=== PATIENT | female | born 1970 ===

== ENCOUNTER 2016-09-12 12:17 | Emergency (ER) | payer MEDICAID ==
[2016-09-12] MEDS ORDERED: DIPHENHYDRAMINE HCL 50 MG CAPSULE ONE (13:19)
[2016-09-12] MEDS ORDERED: MECLIZINE HCL 25 MG TABLET ONE (13:20)
[2016-09-12] MEDS ORDERED: ONDANSETRON 4 MG ODT TAB ONE (13:20)
[2016-09-12] MEDS ORDERED: IBUPROFEN 800 MG TABLET ONE (13:20)
== END 2016-09-12 14:41 | disposition home or self-care (01) ==
LOC: ED 12:17
DX: I10 Essential (primary) hypertension (principal); R51 Headache; R42 Dizziness and giddiness
CPT/HCPCS: 99283 ×2; A9270 ×4

== ENCOUNTER 2016-09-21 10:30 | Emergency (ER) | payer MEDICAID ==
[2016-09-21] MEDS ORDERED: SODIUM CHLORIDE 0.9% 1,000 ML ONE (11:55)
[2016-09-21] MEDS ORDERED: DIAZEPAM 5 MG/ML SYRINGE 2 ML ONE (11:56)
[2016-09-21 12:03] LABS: ABSOLUTE NEUTROPHIL COUNT 7.1 K/mm3 (1.8-7.7); BASO % 0.4 % (0.2-1.0); EOS % 0.2 % (0.9-2.9); HEMATOCRIT 37.2 % (37.0-47.0); HEMOGLOBIN 12.3 gm/l (12.0-16.0); IMM NEUT% 0.3 % (0-1); LYMPH # 1.3 (1.0-4.8); LYMPH % 14.5 % (15-45); MEAN CORPUSCULAR HEMOGLOBIN 27.5 pg (27.0-31.0); MEAN CORPUSCULAR HGB CONC 33.1 g/dl (33.0-37.0); MEAN PLATELET VOLUME 9.8 fl (7.4-10.4); MONO # 0.6 (0.0-0.8); MONO % 6.7 % (4-12); NEUT % 77.9 % (43-75); PLATELET COUNT 258 K/mm3 (130-400); RED CELL DISTRIBUTION WIDTH 12.8 % (11.5-14.5)
[2016-09-21 12:36] LABS: ALBUMIN 3.7 gm/dL (3.5-5.7); CALCIUM 8.9 mg/dL (8.6-10.3)
== END 2016-09-21 13:11 | disposition home or self-care (01) ==
LOC: ED 10:30
DX: R42 Dizziness and giddiness (principal); R11.2 Nausea with vomiting, unspecified; I10 Essential (primary) hypertension
CPT/HCPCS: 84703; 85025; 80053; 99284; 96374; 96361; 99283; J3360; J7030

== ENCOUNTER 2016-09-23 03:45 | Emergency (ER) | payer MEDICAID ==
[2016-09-23] MEDS ORDERED: METOCLOPRAMIDE HCL 5 MG/ML 2ML VIAL ONE (04:17)
[2016-09-23] MEDS ORDERED: KETOROLAC TROMETHAMINE 60 MG/2 ML VIAL ONE (04:17)
[2016-09-23] MEDS ORDERED: DIAZEPAM 5 MG/ML SYRINGE 2 ML ONE (04:17)
== END 2016-09-23 04:56 | disposition home or self-care (01) ==
LOC: ED 03:45
DX: G43.909 Migraine, unspecified, not intractable, without status migrainosus (principal); I10 Essential (primary) hypertension
CPT/HCPCS: 99283 ×2; 96372 ×3; J2765; J1885; J3360